=== PATIENT | male | born 1965 | race African-American/Black ===

== ENCOUNTER 2017-09-20 21:14 | Emergency (ER) | payer OTHER ==
[~2017-09-20] VITALS: Ht 175.3 cm; Wt 88.5 kg
[~2017-09-20 21:14] MED LIST: AUGMENTIN 875-11 TAB PO
[2017-09-20 21:17] VITALS: Ht 175.3 cm; Wt 88.5 kg
[2017-09-20 21:50] LABS: BASOPHILS 0.3 % (0-2); EOSINOPHILS 1.3 % (0-7); HEMATOCRIT 39.6 % (42.0-54.0); HEMOGLOBIN 13.9 g/dL (13.5-17.5); IMMATURE GRANULOCYTES 0.2 % (0-5); LYMPHOCYTES 38.7 % (15-50); MCH 33.7 pg (26.0-34.0); MCHC 35.1 g/dL (31.0-37.0); MCV 96.1 fL (80.0-100.0); MEAN PLATELET VOLUME 10.9 fL (7.4-10.4); MONOCYTES 6.3 % (2-11); NEUTROPHILS 53.2 % (40-80); PLATELET COUNT 152 10x3/uL (130-400); RBC 4.12 10x6/uL (4.20-6.10); RDW 12.1 % (11.5-14.5); WBC 6.4 10x3/uL (4.8-10.8)
[2017-09-20 22:02] LABS: ALBUMIN 3.4 g/dL (3.4-5.0); ANION GAP 10.3 mmol/L (8-16); BILIRUBIN - TOTAL 0.55 mg/dL (0.2-1.3); CALCIUM 8.2 mg/dL (8.5-10.1); CARBON DIOXIDE 28.6 mmol/L (21.0-32.0); CREATININE - SERUM 1.2 mg/dL (0.6-1.3); POTASSIUM - SERUM 3.9 mmol/L (3.5-5.1); PROTEIN - SERUM 6.9 g/dL (6.4-8.2)
[2017-09-20] MEDS ORDERED: AUGMENTIN 875-11 TAB PO (23:35)
[2017-09-20] MEDS ORDERED: MUCINEX D1 TAB.SR . PO (23:35)
[2017-09-20 23:51] VITALS: BP 132/84
== END 2017-09-20 23:51 | disposition home or self-care (01) ==
LOC: D.ER 21:14
PROVIDERS: Family Medicine
DX: J01.90 Acute sinusitis, unspecified (principal); J02.0 Streptococcal pharyngitis; F17.200 Nicotine dependence, unspecified, uncomplicated

== ENCOUNTER 2018-01-17 09:30 | Emergency (ER) | payer OTHER ==
[~2018-01-17] VITALS: Ht 175.3 cm; Wt 89.1 kg
[~2018-01-17 09:30] MED LIST changes: +MUCINEX D1 TAB.SR . PO
[2018-01-17 09:35] VITALS: BP 150/89; Ht 175.3 cm; Wt 89.1 kg
== END 2018-01-17 10:30 | disposition home or self-care (01) ==
LOC: D.ER 09:30
DX: H92.01 Otalgia, right ear (principal)